=== PATIENT | female | born 1990 | race African-American/Black ===

== ENCOUNTER 2019-06-26 10:37 | Emergency (ER) | payer SELFPAY ==
[~2019-06-26] VITALS: Ht 170.2 cm; Wt 97.0 kg
[2019-06-26] MEDS ORDERED: LORAZEPAM 2MG/ML CPJ IM STA (11:07)
[2019-06-26] MEDS ORDERED: HALOPERIDOL LACTATE 5MG/ML VIAL IM STA (11:07)
[2019-06-26 12:46] LABS: BASOPHILS % 0.3 % (0.0-2.0); EOSINOPHILS % 0.2 % (0.0-5.0); HEMATOCRIT. 32.2 % (36.0-48.0); HEMOGLOBIN. 10.9 g/dL (12.0-16.0); LYMPHOCYTES % 13.8 % (20.0-50.0); MEAN CORPUSCULAR HEMOGLOBIN 25.7 pg (28.0-32.0); MEAN CORPUSCULAR VOLUME 76.3 fL (81.0-99.0); MEAN PLATELET VOLUME 7.8 fl (7.4-10.4); MONOCYTES % 9.5 % (2.0-8.0); NEUTROPHILS % 76.2 % (40.0-76.0); PLATELET 314 x1000/uL (130-400); RED BLOOD CELL COUNT 4.22 mill/uL (4.2-5.4)
[2019-06-26 12:52] LABS: CHLORIDE 101 mEq/L (98-107)
[2019-06-26 12:57] LABS: ETHANOL BLOOD < 10 mg/dL
[2019-06-26 13:16] LABS: CLARITY URINE CLEAR (CLEAR); COLOR URINE YELLOW (YELLOW); KETONES URINE TRACE (NEGATIVE); LEUKOCYTE ESTERASE URINE NEGATIVE (NEGATIVE); NITRITE URINE NEGATIVE (NEGATIVE); OCCULT BLOOD URINE NEGATIVE (NEGATIVE); PROTEIN URINE NEGATIVE (NEGATIVE); SPECIFIC GRAVITY URINE 1.003 (1.005-1.030); UROBILINOGEN URINE 0.2 E.U./dL (0.2-1.0)
[2019-06-26 13:42] LABS: *BARBITURATES SCREEN URINE NEGATIVE (NEGATIVE); *BENZODIAZEPINES SCREEN URINE NEGATIVE (NEGATIVE); METHADONE URINE SCREEN NEGATIVE (NEGATIVE); OPIATES URINE SCREEN NEGATIVE (NEGATIVE); PHENCYCLIDINE URINE SCREEN NEGATIVE (NEGATIVE)
[2019-06-26 13:43] LABS: CANNABINOID URINE SCREEN NEGATIVE (NEGATIVE)
[2019-06-26 14:02] LABS: *AMPHETAMINES SCREEN URINE PRESUMTIVE POSITIVE (NEGATIVE); *COCAINE SCREEN URINE PRESUMTIVE POSITIVE (NEGATIVE)
[2019-06-26 17:00] VITALS: BP 130/73
== END 2019-06-26 21:49 | disposition home or self-care (01) ==
LOC: ER 10:37
DX: T40.5X1A Poisoning by cocaine, accidental (unintentional), initial encounter (principal); F29 Unspecified psychosis not due to a substance or known physiological condition; Z88.6 Allergy status to analgesic agent; Y92.89 Other specified places as the place of occurrence of the external cause
CPT/HCPCS: 36415; 80053; 80305; 80307; 80320; 80329; 81003; 81025; 85025; 96372; 99283; J1630; J2060; G0480

== ENCOUNTER 2019-06-27 08:02 | Emergency (ER) | payer SELFPAY | END 2019-06-27 08:42 | disposition left against medical advice (07) | LOC: ER 08:03 | DX: Z53.21 Procedure and treatment not carried out due to patient leaving prior to being seen by health care provider (principal); Z88.6 Allergy status to analgesic agent | CPT/HCPCS: 81025 ==